=== PATIENT | female | born 2000 | race Caucasian/White ===

== ENCOUNTER 2023-01-31 10:35 | Outpatient (OUT) | payer OTHER, BC, SELFPAY ==
--- NOTE | 2023-01-31 10:48 | US_ITS ---
The [address] [address] Patient Name: RAMIRO ROME MRN: [id number] date: 2000 Sex: F Assigned Patient Location: Current Patient Location: [facility] Accession/Order Number: [id number] Exam Date: 01/31/2023 10:50 Report Date: 01/31/2023 15:05 At the request of: WES GAYTAN Procedure: US pelvis w/ transvaginal EXAM: US pelvis w/ transvaginal INDICATION: UNABLE TO LOCATE IUD STRINGS COMPARISON: Pelvic ultrasound 09/29/2020 TECHNIQUE: Transvaginal ultrasound with grayscale, color Doppler and spectral Doppler imaging. FINDINGS: Anteverted Uterus:7.6 x 3.9 x 5.2 cm. Grossly normal myometrial echotexture. Intrauterine device not clearly identified. Two 1 mm echogenic foci within the upper endometrial canal may represent calcifications. Endometrium:5.0 mm Right ovary: 2.7 x 1.2 x 2.5 cm. Left ovary: 2.5 x 1.2 x 2.3cm. Normal color Doppler with arterial/venous spectral tracing to both ovaries. No free fluid in the cul-de-sac. US/US pelvis w/ transvaginal IMPRESSION: 1. Intrauterine device not clearly identified on this sonographic evaluation. 2. No acute findings. Electronically authenticated by: IZABELAL TOVAR Date: 01/31/2023 15:05
== END 2023-01-31 10:36 | disposition home or self-care (01) ==
LOC: US 10:44
PROVIDERS: Visit Provider Obstetrics & Gynecology
DX: R10.2 Pelvic and perineal pain (principal)
CPT/HCPCS: 76830; 76856

== ENCOUNTER 2023-01-31 11:36 | Outpatient (OUT) | payer OTHER, MEDICAID, SELFPAY ==
--- NOTE | 2023-01-31 12:00 | XR_ITS ---
The [address] [address] Patient Name: RAMIRO ROME MRN: [id number] date: 2000 Sex: F Assigned Patient Location: [facility] Current Patient Location: [facility] Accession/Order Number: [id number] Exam Date: 01/31/2023 11:55 Report Date: 01/31/2023 14:49 At the request of: WES GAYTAN Procedure: XR abdomen 1V EXAM: XR abdomen 1V 01/31/2023. COMPARISON STUDY: Acute abdominal series 09/29/2020 FINDINGS: A total of 2 images were obtained. HISTORY: Pelvic Pain, Locate IUD XR/XR abdomen 1V IMPRESSION: 1. There is mild retention of stool within the large bowel suggestive of constipation. Bowel pattern does not appear obstructive. 2. No new pathologic calcification noted. No acute osseous abnormality. 3. Horizontally oriented IUD device overlaps the upper right hemipelvis. This may be malpositioned. Please see report of pelvic ultrasound from the same date for further detail. Electronically authenticated by: DEEPTI MEDINA Date: 01/31/2023 14:49
== END 2023-01-31 11:37 | disposition home or self-care (01) ==
LOC: RAD 11:38
PROVIDERS: Visit Provider Obstetrics & Gynecology
DX: R10.2 Pelvic and perineal pain (principal); Z97.5 Presence of (intrauterine) contraceptive device
CPT/HCPCS: 74018; 76830; 76856

== ENCOUNTER 2023-02-02 12:21 | Outpatient (OUT) | payer OTHER, MEDICAID, SELFPAY | END 2023-02-02 12:22 | disposition home or self-care (01) | LOC: PST 12:23 | PROVIDERS: Visit Provider Obstetrics & Gynecology | DX: Z01.818 Encounter for other preprocedural examination (principal); R10.2 Pelvic and perineal pain; T83.39XA Other mechanical complication of intrauterine contraceptive device, initial encounter ==

== ENCOUNTER 2023-02-03 08:18 | Day surgery (SDC) | payer OTHER, MEDICAID, SELFPAY ==
[2023-02-02 12:52] VITALS: BP 115/69; PULSE 60; RESP 14; TEMP 36.6; O2SAT 99; BMI 30.6
[2023-02-03] VITALS (8 sets, daily range): BP systolic 92–124; BP diastolic 52–76; PULSE 55–106; RESP 12–16; TEMP 36.1–36.6; O2SAT 98–100
[2023-02-03 08:29] LABS: Basophils Percent Auto 0.7 % (0.2-2.0); Eosinophils Absolute Auto 0.1 10^3/uL (0.0-0.7); Hematocrit 36.4 % (36.0-48.0); Hemoglobin 12.4 g/dL (12.0-16.0); Immature Granulocytes Abs Auto 0.01 10^3/uL (0.00-0.03); Immature Granulocytes Pct Auto 0.2 % (0.0-0.5); Lymphocytes Absolute Auto 1.5 10^3/uL (1.2-3.8); Lymphocytes Percent Auto 32.6 % (20.5-60.0); Mean Corpuscular HGB Conc 34.1 g/dL (29.9-35.2); Mean Corpuscular Hemoglobin 30.4 pg (26.7-34.0); Mean Corpuscular Volume 89.2 fL (81.0-99.0); Mean Platelet Volume 9.4 fL (9.5-13.5); Monocytes Absolute Auto 0.4 10^3/uL (0.3-0.8); Monocytes Percent Auto 9.5 % (1.7-12.0); Neutrophils Absolute Auto 2.5 10^3/uL (1.4-6.5); Platelet Count 248 10^3/uL (150-450); Red Blood Count 4.08 10^6/uL (4.20-5.40); Red Cell Distribution Width 12.9 % (11.0-15.0); White Blood Count 4.5 10^3/uL (4.0-11.0)
[2023-02-03 08:51] LABS: HCG Quantitative <1 mIU/mL
[2023-02-03] MEDS: LACTATED RINGER'S SOLUTION 1,000 ML 50 ML IV (09:07)
--- NOTE | 2023-02-03 11:19 | PM.ONB ---
Brief Operative Note Date of procedure: 02/03/23 Pre-op diagnosis: retained iud Post-op diagnosis: same as pre-op Procedure: NAME OF PROCEDURE: [diagnostic laparoscopy ] PROCEDURE: The patient was taken back to the Operating Room where she was placed in dorsal lithotomy position after given general anesthesia. The patient was prepped and draped in normal sterile fashion. A sponge stick was placed into the patient's vagina. Attention was turned to the patient's abdomen, where a small umbilical incision was made. The fascia was tented using Luis clamps and the fascia was entered sharply. Confirmation of intraabdominal placement of the 10 mm port was confirmed under direct visualization using a laparoscope. The patient's abdomen was then insufflated using CO2 gas with approximately 4 liters. A second port was placed left laterally, this was done under direct visualization with a 5 mm port. Survey of the patient's abdomen demonstrated normal liver and gallbladder. Survey of the patient's pelvic anatomy demonstrated normal appearing rt and lt ovary and tubes as well as normal appearing uterus. No endometrial implants could be noted, no evidence of any pelvic disease was seen, normal appearing pelvic cavity. iud was identified in posterior culdesac and easily removed using a grasper. All instruments were removed from the patient's abdomen. The patient's abdomen was deinsufflated of CO2 gas. The patient tolerated the procedure well. Sponge stick was removed from the patient's vagina. The patient's infraumbilical fascia was closed using #0 Vicryl on a GI needle. The patient's skin was closed laterally and infraumbilically using 4-0 Vicryl. The patient tolerated the procedure well. Sponge, lap and needle counts were correct x 2. The patient was taken to Recovery Room in stable condition.Clips from prior surgery noted adhered to bladder, the clips were grasped and gently removed Anesthesia: ALEXANDER Surgeon: Jose Jim Management Psychologist: Kacy Mckeon Estimated blood loss (mL): 5 Pathology: other (iud) Condition: stable Disposition: PACU
--- NOTE | 2023-02-03 12:49 | PC.NURSE ---
voided clear yellow urine; peripad dry; scant bloody drainage left dressing
== END 2023-02-03 12:51 | disposition home or self-care (01) ==
PROVIDERS: Visit Provider Obstetrics & Gynecology
PROC: (CPT 840; principal; 2023-02-03 09:50)
DX: R10.2 Pelvic and perineal pain (principal); T83.39XA Other mechanical complication of intrauterine contraceptive device, initial encounter
CPT/HCPCS: 49329; 36415; 84702; 85025; J2704

== ENCOUNTER 2023-07-18 14:06 | Outpatient (REF) | payer OTHER, MEDICAID, SELFPAY ==
[2023-07-21 09:08] LABS: Age Gdln ACOG Testing Note (.); IGP, rfx Aptima HPV ASCU Note (.)
== END 2023-07-18 14:07 | disposition home or self-care (01) ==
LOC: LAB 14:06
PROVIDERS: Visit Provider Obstetrics & Gynecology
DX: Z01.419 Encounter for gynecological examination (general) (routine) without abnormal findings (principal)
CPT/HCPCS: G0145

== ENCOUNTER 2024-07-22 15:00 | Outpatient (REF) | payer OTHER, MEDICAID, SELFPAY ==
[2024-07-24 19:09] LABS: Age Gdln ACOG Testing Note (.); IGP, rfx Aptima HPV ASCU Note (.)
== END 2024-07-22 15:01 | disposition home or self-care (01) ==
LOC: LAB 15:00
PROVIDERS: Visit Provider Obstetrics & Gynecology
DX: Z01.419 Encounter for gynecological examination (general) (routine) without abnormal findings (principal)
CPT/HCPCS: 88175